=== PATIENT | male | born 1940 | race Caucasian/White ===

== ENCOUNTER 2018-11-08 15:34 | Emergency (ER) | payer MEDICARE, SELFPAY ==
[2018-11-08] VITALS (9 sets, daily range): BP systolic 142–157; BP diastolic 75–99; PULSE 64–78; RESP 13–19; TEMP 36.8; O2SAT 92–100; BMI 24.4
--- NOTE | 2018-11-08 15:45 | DI.RAD.S_ITS ---
PROCEDURE: XR CHEST 1V INDICATIONS: chest pain TECHNIQUE: One view of the chest was acquired. COMPARISON: None. FINDINGS: Surgical changes and devices: Surgical clips in the right. Lungs and pleura: Left harley-diaphragm elevation and left basilar atelectasis. Lungs are otherwise clear. No pleural effusions or pneumothorax. Mediastinum: Mediastinal contours appear normal. Heart size is normal. Bones and chest wall: No suspicious bony lesions. Overlying soft tissues appear unremarkable. IMPRESSION: Left harley-diaphragm elevation and left basilar atelectasis. Dictated by: Jose David Brink M.D. on 11/08/2018 at 16:23 Approved by: Jose David Brink M.D. on 11/08/2018 at 16:24
--- NOTE | 2018-11-08 15:53 | ED.CHESTPAIN ---
HPI - Chest Pain General Chief Complaint: Chest Pain Stated Complaint: CHEST PAIN Time Seen by Provider: 11/08/18 15:45 Source: patient Mode of arrival: ambulatory Limitations: no limitations History of Present Illness HPI narrative: Patient is a 77-year-old male who presents with chest pain. He is visiting from [place]. He has had some chest tightness ongoing for about 1 week. It definitely gets worse with exertion. In fact he was playing golf 1 week ago he had to stop multiple times due to pain. However the last 2 nights in a row he woke up from a sleep with arm achiness. He currently does not have any chest discomfort. He said walking in from the parking lot to the emergency department he did not have any pain. However if there is any slight bit of incline he will have discomfort. Also he picks up his dog he gets discomfort and pain. MD complaint: chest pain Duration: intermittent Onset: during rest and during exertion Quality: tightness and heaviness Treatments prior to arrival chest pain: aspirin (Last night) Related Data Home Medications Medication Instructions Recorded Confirmed amlodipine 2.5 mg PO DAILY 11/08/18 11/08/18 aspirin [Aspirin Low Dose] 81 mg PO DAILY 11/08/18 11/08/18 losartan-hydrochlorothiazide 1 tab PO DAILY 11/08/18 11/08/18 simvastatin 20 mg PO BEDTIME 11/08/18 11/08/18 trazodone 50 mg PO BEDTIME 11/08/18 11/08/18 Allergies Allergy/AdvReac Type Severity Reaction Status Date / Time Tetracyclines Allergy Verified 11/08/18 15:45 Review of Systems Review of Systems GENERAL: Denies chills, fatigue, malaise, fever, sweats, travel HEENT: Denies sinus pain, ear pain, sore throat, difficulty swallowing, neck pain RESPIRATORY: Denies dyspnea, cough, wheezing, hemoptysis, sputum. CARDIOVASCULAR: See HPI GASTROINTESTINAL: Denies nausea, vomiting, abdominal pain, diarrhea, constipation, melena. : Denies dysuria, frequency, incontinence, hematuria, urinary retention, flank pain. MUSCULOSKELETAL: Denies weakness, joint pain, or bony pain SKIN: No rash, no erythema, no pruritus NEUROLOGIC: Denies weakness, dizziness, headache, numbness, change in speech, confusion PSYCHIATRIC: No concerning psychosocial issues. 12 point review of systems is negative except for those stated above and HPI PFSH Medical History Hyperlipidemia (Acute) Hypertension (Acute) Social History Smoking Status: Never smoker Social History Smoking Status: Never smoker Comment: From [place] Exam Initial Vital Signs Initial Vital Signs: Vital Signs Temperature 98.2 F 11/08/18 15:35 Pulse Rate 78 11/08/18 15:35 Respiratory Rate 16 11/08/18 15:35 Blood Pressure 152/89 H 11/08/18 15:35 Pulse Oximetry 92 11/08/18 15:35 GENERAL: Well-appearing, well-nourished and in no acute distress. HEENT: Head atraumatic,EOMI, pupils reactive, face symmetric, moist mucous membranes CARDIOVASCULAR: Regular rate and rhythm without murmurs, rubs or gallops. RESPIRATORY: Breath sounds equal bilaterally, no wheezes rales or rhonchi. ABDOMEN: Soft, nontender. Normoactive bowel sounds all 4 quadrants. No guarding or rebound. EXTREMITIES: Normal range of motion, no clubbing or edema. Neurovascularly intact NEUROLOGICAL: Alert and oriented x4.Normal gait and speech. Cranial nerves II through XII grossly intact. SKIN: Warm, dry, no laceration, no petechiae, no rashes or lesions. Course Orders Ordered: ED Orders 11/08/18 15:42 EKG-12 Lead Stat 11/08/18 15:45 XR chest 1V Stat 11/08/18 15:50 Complete Blood Count AUTO DIFF Stat Comprehensive Metabolic Panel Stat Lipase Stat Partial Thromboplastin Time Stat Prothrombin Time INR Stat Troponin & CK Cardiac Panel Stat Discontinued Medications Aspirin (Aspirin Chew) 324 mg PO NOW ONE Stop: 11/08/18 15:54 Last Admin: 11/08/18 15:55 Dose: 324 mg Consultations Consultation #1: Dr. Aquino, cardiology updated on patient's symptoms and test results. Recommend admitting to Medicine Time: 17:03 Consultation #2: Dr. Edmondson hospitalist at [facility] and agrees and accepts transfer for. Time: 17:10 Vital Signs - 8 hr 11/08/18 15:35 11/08/18 16:05 11/08/18 16:09 Temperature 98.2 F 98.2 F Pulse Rate 78 78 68 Respiratory Rate 16 16 16 Blood Pressure 152/89 H 152/89 H Blood Pressure [Right Arm] 145/89 H Pulse Oximetry 92 92 100 11/08/18 16:30 11/08/18 16:45 11/08/18 17:00 Temperature Pulse Rate 65 64 64 Respiratory Rate 16 14 16 Blood Pressure Blood Pressure [Right Arm] 153/79 H 154/79 H 142/75 H Pulse Oximetry 100 100 98 11/08/18 17:15 11/08/18 18:03 Temperature Pulse Rate 64 70 Respiratory Rate 17 13 Blood Pressure Blood Pressure [Right Arm] 146/99 H 156/77 H Pulse Oximetry 98 100 MDM - Chest Pain Lab Data Attestation: I reviewed the patient's lab results. Result diagrams: 11/08/18 15:50 11/08/18 15:50 Lab Results 11/08/18 11/08/18 11/08/18 Range/Units 15:50 15:50 15:50 WBC 5.0 (4.5-11.0) X10^3/uL RBC 4.10 L (4.5-5.9) X10^6/uL Hgb 13.3 L (13.5-17.5) g/dL Hct 38.6 L (41-53) % MCV 94.1 (80-100) fL MCH 32.5 (26-34) PG MCHC 34.5 (30-36) % RDW 14.5 (11.6-14.8) % Plt Count 226 (150-400) X10^3/uL Neut % (Auto) Not Reportable Lymph % (Auto) Not Reportable [place] % (Auto) Not Reportable Eos % (Auto) Not Reportable Baso % (Auto) Not Reportable Lymph # (Auto) Not Reportable [place] # (Auto) Not Reportable Baso # (Auto) Not Reportable Total Counted 100 Seg Neutrophils % 55.0 (38-70) % Lymphocytes % (Manual) 20.0 L (25-45) % Atypical Lymphs % 10.0 H ( - 0) % Monocytes % (Manual) 9.0 (2-11) % Eosinophils % (Manual) 5.0 H (2-4) % Basophils % (Manual) 1.0 (0-1) % Neutrophils # (Manual) 2750 L (4234-8149) /uL RBC Morphology Not Reportable Poikilocytosis 1+ H PT 11.1 (10.1-12.7) SECONDS INR 1.0 (0.9-1.3) APTT 34 (26.4-36.2) SECONDS Sodium 136 L (137-145) mmol/L Potassium 4.1 (3.4-5.1) mmol/L Chloride 97 L (98-107) mmol/L Carbon Dioxide 29 (22-32) mmol/L BUN 15 (9-20) mg/dL Creatinine 0.60 L (0.66-1.25) mg/dL Estimated GFR > 60.0 (>60) mL/min BUN/Creatinine Ratio 25.0 H (6-22) Glucose 87 (80-110) mg/dL Calcium 9.5 (8.4-10.2) mg/dL Total Bilirubin 0.8 (0.2-1.3) mg/dL AST 35 (17-59) IU/L ALT 24 (21-72) IU/L Alkaline Phosphatase 83 (38-126) U/L Total Creatine Kinase 117 (55-170) U/L CK-MB (CK-2) 2.68 H (<2.37) ng/mL CK-MB (CK-2) Rel Index 2.3 (1.5-5.0) % Troponin I 0.013 (0.01-0.034) ng/mL Total Protein 7.2 (6.3-8.2) g/dL Albumin 4.3 (3.5-5.0) g/dL Globulin 2.9 (1.7-4.1) g/dL Albumin/Globulin Ratio 1.5 (1.0-2.8) Lipase 176 (23-300) U/L ECG Data Attestation: I personally reviewed and interpreted this ECG as follows: Prior ECG tracings: not available for review Interpretation: EKG 1. Sinus rhythm rate 60 appear interval 189 T-wave inversion noted in lead to no priors to compare no ST elevations Core Measures AMI core measures followed: Yes MDM Narrative Medical decision making narrative: Patient has concerning signs for cardiac disease. He also has T-wave inversions in contiguous leads V2 and V3. Troponin negative no ST elevations. [facility] not able to do any sort of stress testing over the weekend. He has remained chest pain-free in the ED. Patient will be transferred to [facility] for further evaluation. Discharge Plan Departure Patient Disposition: [facility] Clinical Impression: Chest pain Qualifiers: Chest pain type: unspecified Qualified Code(s): R07.9 - Chest pain, unspecified Prescriptions: No Action losartan-hydrochlorothiazide 100-25 mg Tablet 1 tab PO DAILY RF: 0 trazodone 50 mg Tablet 50 mg PO BEDTIME RF: 0 simvastatin 20 mg Tablet 20 mg PO BEDTIME RF: 0 amlodipine 2.5 mg Tablet 2.5 mg PO DAILY RF: 0 aspirin [Aspirin Low Dose] 81 mg Tablet,Delayed Release (Dr/Ec) 81 mg PO DAILY RF: 0
[2018-11-08] MEDS: ASPIRIN 81 MG TAB 324 MG PO (15:55)
[2018-11-08 16:01] LABS: Hematocrit 38.6 % (41-53); Hemoglobin 13.3 g/dL (13.5-17.5); Mean Corpuscular HGB Conc 34.5 % (30-36); Mean Corpuscular Hemoglobin 32.5 PG (26-34); Mean Corpuscular Volume 94.1 fL (80-100); Platelet Count 226 X10^3/uL (150-400); Red Cell Distribution Width 14.5 % (11.6-14.8)
[2018-11-08 16:02] LABS: Add Manual Diff / Slide Review YES
[2018-11-08 16:07] LABS: Prothrombin Time 11.1 SECONDS (10.1-12.7)
[2018-11-08 16:10] LABS: PTT Partial Thromboplastin Tim 34 SECONDS (26.4-36.2)
[2018-11-08 16:11] LABS: Alanine Aminotransferase 24 IU/L (21-72); Albumin 4.3 g/dL (3.5-5.0); Albumin Globulin Ratio 1.5 (1.0-2.8); Alkaline Phosphatase 83 U/L (38-126); Aspartate Aminotransferase 35 IU/L (17-59); Bilirubin Total 0.8 mg/dL (0.2-1.3); Blood Urea Nitrogen 15 mg/dL (9-20); Calcium 9.5 mg/dL (8.4-10.2); Carbon Dioxide 29 mmol/L (22-32); Chloride 97 mmol/L (98-107); Creatine Kinase 117 U/L (55-170); Estimated Glomerular Filt Rate > 60.0 mL/min (>60); Globulin 2.9 g/dL (1.7-4.1); Glucose 87 mg/dL (80-110); HEMOLYSIS 30 (0-50); Lipase 176 U/L (23-300); Potassium 4.1 mmol/L (3.4-5.1); Sodium 136 mmol/L (137-145); Total Protein 7.2 g/dL (6.3-8.2)
[2018-11-08 16:23] LABS: Troponin I 0.013 ng/mL (0.01-0.034)
[2018-11-08 16:26] LABS: CKMB % Relative Index 2.3 % (1.5-5.0); Creatine Kinase MB 2.68 ng/mL (<2.37)
[2018-11-08 16:28] LABS: Neutrophils Absolute Manual 2750 /uL (3000-5900); Total Cells Counted 100
[2018-11-08 16:30] LABS: Poikilocytosis 1+
== END 2018-11-08 19:10 | disposition short-term general hospital (02) ==
PROVIDERS: Emergency Provider Emergency Medicine
DX: R07.9 Chest pain, unspecified (principal)
CPT/HCPCS: 36591; 71045; 80053; 82550; 82553; 83690; 84484; 85025; 85610; 85730; 93005; 99283; 99285